=== PATIENT | male | born 1985 | race Two or more races ===

== ENCOUNTER → 2023-04-22 | Emergency (ER) | payer MEDICARE, OTHER ==
[~2023-04-22] VITALS: Ht 170.2 cm; Wt 111.0 kg
[~2023-04-22] MED LIST: IBUP-1506 PO
[2023-04-22 20:57] VITALS: BP 143/87; PULSE 69; RESP 18; TEMP 97.1
== END | disposition still patient (30) ==
LOC: EMS 20:51
DX: M25.531 Pain in right wrist (principal); I10 Essential (primary) hypertension; F20.9 Schizophrenia, unspecified; F32.A Depression, unspecified
CPT/HCPCS: 99283